=== PATIENT | male | born 2000 | race Hispanic/Latino ===

== ENCOUNTER 2024-12-27 01:50 | Emergency (ER) | payer OTHER ==
[~2024-12-27] VITALS: Ht 180.3 cm; Wt 85.0 kg
[2024-12-27] MEDS: diphenhydrAMINE 25MG CAP PO ONE (04:32)
[2024-12-27] MEDS: dexAMETHasone 20MG/5ML VIAL IV ONE (04:33)
[2024-12-27] MEDS: PENICILLIN G BENZATHINE IM ONE (04:33)
[2024-12-27] MEDS: FAMOTIDINE 20 MG TAB PO ONE (04:33)
[2024-12-27] MEDS: ACETAMINOPHEN 500 MG TAB PO ONE (04:34)
[2024-12-27] MEDS ORDERED: VALA1TAB5 PO (05:25)
[2024-12-27] MEDS ORDERED: PEPC1TAB5 PO (05:25)
[2024-12-27] MEDS ORDERED: BENA25CA4 PO (05:25)
[2024-12-27 05:41] VITALS: BP 138/75; TEMP 98.2; O2SAT 99
== END 2024-12-27 05:42 | disposition home or self-care (01) ==
LOC: M ED 01:50
DX: J02.0 Streptococcal pharyngitis (principal); F17.200 Nicotine dependence, unspecified, uncomplicated
CPT/HCPCS: 87070; 87486; 87581; 87633; 87798; 87880; 96372; 96374; 99283; J0561; J1100

== ENCOUNTER 2025-03-06 09:11 | Emergency (ER) | payer OTHER ==
[~2025-03-06] VITALS: Ht 180.3 cm; Wt 82.3 kg
[~2025-03-06 09:11] MED LIST: BENA25CA4 PO; PEPC1TAB5 PO; VALA1TAB5 PO
[2025-03-06 11:05] VITALS: BP 120/64; TEMP 97.6; O2SAT 100
== END 2025-03-06 11:07 | disposition home or self-care (01) ==
LOC: M ED 09:11
DX: R21 Rash and other nonspecific skin eruption (principal); F17.200 Nicotine dependence, unspecified, uncomplicated; Z79.899 Other long term (current) drug therapy

== ENCOUNTER 2025-03-19 05:53 | Emergency (ER) | payer OTHER ==
[~2025-03-19] VITALS: Ht 180.3 cm; Wt 78.6 kg
[2025-03-19 08:13] LABS: BASO # 0.1 10^3/uL (0.0-0.2); BASO % 1.0 % (0.0-1.0); EOS # 0.4 10^3/uL (0.0-0.5); EOS % 6.4 % (0.0-3.0); LYMPH # 1.9 10^3/uL (1.5-5.0); LYMPH % 31.7 % (24.0-44.0); MONO # 0.6 10^3/uL (0.0-0.8); MONO % 9.5 % (2.0-8.0); NEUTROPHILS # 3.1 10^3/uL (1.5-8.5); NEUTROPHILS % 51.2 % (36.0-66.0); PLATELET COUNT, AUTOMATED 215 10^3/uL (150-450)
[2025-03-19 08:56] LABS: ALT/SGPT 17 U/L (7.0-40); AST/SGOT 19 U/L (<34); CALCIUM LEVEL 9.5 MG/DL (8.5-10.1); CARBON DIOXIDE LEVEL 25 MMOL/L (20-31); CHLORIDE LEVEL 106 MMOL/L (98-107); CREATININE FOR GFR 0.95 MG/DL (0.70-1.30); GLOMERULAR FILTRATION RATE > 90.0 (>60); POTASSIUM SERUM 4.1 MMOL/L (3.5-5.1); SODIUM LEVEL 143 MMOL/L (136-145)
[2025-03-19 08:57] LABS: MONO SCRN NEGATIVE (NEGATIVE)
[2025-03-19 09:24] LABS: HIV 1&2 SCREEN NEGATIVE (NEGATIVE)
[2025-03-19] MEDS: dexAMETHasone 4 MG/ML 1 ML VIAL IV ONE (10:37)
[2025-03-19 10:47] VITALS: BP 130/64; TEMP 97.9; O2SAT 98
== END 2025-03-19 10:53 | disposition home or self-care (01) ==
LOC: M ED 05:53
DX: R21 Rash and other nonspecific skin eruption (principal); B00.1 Herpesviral vesicular dermatitis; R53.83 Other fatigue; F17.290 Nicotine dependence, other tobacco product, uncomplicated; Z79.899 Other long term (current) drug therapy
CPT/HCPCS: 71046; 80053; 85025; 86308; 86780; 87389; 87486; 87581; 87633; 87798; 96374; 99284; J1100